=== PATIENT | female | born 1985 | race African-American/Black ===

== ENCOUNTER → 2016-12-11 | Outpatient (CLI) | payer SELFPAY | END | disposition home or self-care (01) | LOC: CBAR 09:50 | DX: Z01.818 Encounter for other preprocedural examination (principal); E66.01 Morbid (severe) obesity due to excess calories | CPT/HCPCS: G0463 ==

== ENCOUNTER → 2017-01-09 | Outpatient (CLI) | payer SELFPAY | END | disposition home or self-care (01) | LOC: CBAR 08:12 | DX: Z01.818 Encounter for other preprocedural examination (principal); E66.01 Morbid (severe) obesity due to excess calories | CPT/HCPCS: G0463 ==